=== PATIENT | female | born 1970 | race Two or more races ===

== ENCOUNTER 2025-04-13 21:04 | Emergency (ER) | payer OTHER ==
[~2025-04-13] VITALS: Ht 170.2 cm; Wt 102.1 kg
[2025-04-13] MEDS ORDERED: METFORMIN HCL500 M3 (21:30)
[2025-04-13] MEDS ORDERED: CHILDREN'S ASPI81 MG (21:31)
[2025-04-13] MEDS ORDERED: ATORVASTATIN CA10 MG (21:31)
[2025-04-13] MEDS ORDERED: GLIMEPIRIDE1 M1 (21:31)
[2025-04-13] MEDS ORDERED: TAMOXIFEN CITRA10 MG (21:32)
[2025-04-13] MEDS ORDERED: PANTOPRAZOLE SO40 M2 (21:32)
[2025-04-13] MEDS ORDERED: IRBESARTAN75 MG (21:32)
[2025-04-13] MEDS ORDERED: KETOROLAC TROMETHAMINE 60 MG VIAL IM ONE ×2 (22:15→22:35)
[2025-04-13] MEDS ORDERED: ACETAMINOPHEN 500 MG GEL..CAP PO ONE ×2 (22:15→22:35)
[2025-04-13] MEDS ORDERED: ORPHENADRINE CITRATE 30 MG/ML AMPUL IM ONE (22:15)
[2025-04-13] MEDS ORDERED: DEXAMETHASONE SODIUM PHOSPHATE 4 MG/ML VIAL IM ONE (22:15)
[2025-04-13] MEDS ORDERED: DIPHENHYDRAMINE HCL 50 MG CAPSULE PO ONE (22:30)
[2025-04-13] MEDS ORDERED: ORPHENADRINE CITRATE 30 MG/ML AMPUL ONE (22:35)
[2025-04-13] MEDS ORDERED: DEXAMETHASONE SODIUM PHOSPHATE 4 MG/ML VIAL ONE (22:35)
[2025-04-13] MEDS ORDERED: MEDROLPACK PO (22:38)
[2025-04-13] MEDS ORDERED: CYCLOBENZAPRINE10 MG PO (22:38)
[2025-04-13] MEDS ORDERED: ACETAMINOPHEN500 M1 PO (22:38)
== END 2025-04-14 00:22 | disposition home or self-care (01) ==
LOC: ER 21:05
DX: M75.82 Other shoulder lesions, left shoulder (principal); M77.8 Other enthesopathies, not elsewhere classified; I10 Essential (primary) hypertension; J45.909 Unspecified asthma, uncomplicated; Z85.3 Personal history of malignant neoplasm of breast; K21.9 Gastro-esophageal reflux disease without esophagitis; Z79.84 Long term (current) use of oral hypoglycemic drugs